=== PATIENT | female | born 1950 | race Caucasian/White ===

== ENCOUNTER → 2020-07-13 | Outpatient (CLI) | payer MEDICARE ==
[~2020-07-13] MED LIST: ASCO500T8 PO; ASPI81TA45 PO; ATOR10TA9 PO; CITA10TA4 PO; GLIM4TAB8 PO; IBUP-1902 PO; IRON PO; LISI1TAB23 PO; METF500T17 PO; OMEP20TA62 PO
[2020-07-13 15:13] LABS: BASOPHILS % (AUTO) 1 % (0-1); EOSINOPHILS % (AUTO) 0 % (1-7); LYMPHOCYTES % (AUTO) 22 % (22-44); MEAN CORPUSCULAR HEMOGLOBIN 27.4 pg (27.0-34.8); MEAN CORPUSCULAR HGB CONC 32.3 g/dL (32.4-35.8); MEAN PLATELET VOLUME 10.3 fL (7.4-10.4); MONOCYTES % (AUTO) 8 % (2-9); NEUTROPHILS % (AUTO) 70 % (42-75); PLATELET COUNT 187 x10^3/uL (130-400); RED BLOOD COUNT 4.68 x10^6/uL (3.82-5.3); RED CELL DISTRIBUTION WIDTH 15.1 % (9.6-15.2)
[2020-07-13 15:17] LABS: MD NO
[2020-07-13 15:25] LABS: ALANINE AMINOTRANSFERASE 50 U/L (12-78); ALBUMIN 3.9 g/dL (3.4-5.0); ANION GAP 7 mmol/L (5-15); CALCIUM 8.9 mg/dL (8.5-10.1); CHLORIDE 112 mmol/L (98-107); CREATININE 1.16 mg/dL (0.55-1.02)
[2020-07-13 15:27] LABS: ALKALINE PHOSPHATASE 191 U/L (45-117); BILIRUBIN,TOTAL 0.7 mg/dL (0.2-1.0); MICROSCOPIC NOT IND; TOTAL PROTEIN 8.9 g/dL (6.4-8.2)
== END | disposition home or self-care (01) ==
LOC: STAR 13:48
PROVIDERS: ATTEND Orthopaedic Surgery
DX: Z01.812 Encounter for preprocedural laboratory examination (principal); Z20.822 Contact with and (suspected) exposure to COVID-19; M17.12 Unilateral primary osteoarthritis, left knee
CPT/HCPCS: 80053; 81003; 85025; 87081; 87635; 87806; 93005; G0475

== ENCOUNTER 2020-07-19 08:08 | Observation (INO) | payer MEDICARE ==
[~2020-07-19] VITALS: Ht 154.9 cm; Wt 73.2 kg
[~2020-07-19 08:08] MED LIST changes: +BACITRACIN 50,000 UNIT ONE; +EPINEPHRINE 1 MG/ML, 1ML ONE; +ROPIvacaine/PF 0.2%, 20 ML ONE; +SODIUM CHLORIDE 0.9% 50 ML ONE; +TRANEXAMIC ACID 100 MG/ML, 10ML ONE; +morphine SULFATE/PF 1 MG/ML, 10ML ONE
[2020-07-19] MEDS ORDERED: VANCOMYCIN PMX 1GM/200ML 200 ML IV ONE (08:30)
[2020-07-19] MEDS ORDERED: CHLORHEXIDINE 15 ML UDC MM ONE (08:30)
[2020-07-19] MEDS ORDERED: LACTATED RINGERS 1,000 ML IV SCH (08:30)
[2020-07-19] MEDS ORDERED: CHLORHEXIDINE 15 ML UDC ONE (08:43)
[2020-07-19] MEDS ORDERED: FENTANYL PF 250 MCG/5ML ONE ×2 (08:51→10:48)
[2020-07-19] MEDS ORDERED: MIDAZOLAM 1 MG/ML, 2ML ONE (08:51)
[2020-07-19] MEDS ORDERED: PROMETHAZINE 25 MG/ML, 1ML IVPush PRN (09:30)
[2020-07-19] MEDS ORDERED: METHOCARBAMOL 1,000 MG in DEXTROSE 5% 100 ML IV PRN (09:30)
[2020-07-19] MEDS ORDERED: TRANEXAMIC ACID 1,000 MG in SODIUM CHLORIDE 0.9% 100 ML IV ONE ×2 (09:30→14:30)
[2020-07-19] MEDS ORDERED: OXYcodone 5 MG/5 ML ORAL.SOL UDC PO PRN (09:30)
[2020-07-19] MEDS ORDERED: ACETAMINOPHEN 325 MG TABLET PO PRN (09:30)
[2020-07-19] MEDS ORDERED: MEPERIDINE/PF 25MG/0.5ML IVPush PRN (09:30)
[2020-07-19] MEDS ORDERED: LORazepam 2 MG/ML, 1ML IVPush PRN ×2 (09:30)
[2020-07-19] MEDS ORDERED: EPHEDRINE 50 MG/ML, 1ML IVPush PRN (09:30)
[2020-07-19] MEDS ORDERED: HYDROmorphone 1 MG/ML, 1ML INJ IVPush PRN (09:30)
[2020-07-19] MEDS: D5%-0.45% NACL 1,000 ML IV SCH ×3 (09:30→19:30)
[2020-07-19] MEDS ORDERED: OXYcodone/APAP 7.5/325MG TABLET PO PRN (09:30)
[2020-07-19] MEDS ORDERED: ONDANSETRON 2MG/ML, 2ML IVPush PRN ×2 (09:30)
[2020-07-19] MEDS ORDERED: DIPHENHYDRAMINE 25 MG CAPSULE PO PRN (09:30)
[2020-07-19] MEDS ORDERED: HALOPERIDOL 5 MG/ML IV PRN (09:30)
[2020-07-19] MEDS ORDERED: morphine SULFATE 10 MG/ML, 1ML IVPush PRN (09:30)
[2020-07-19] MEDS ORDERED: hydrALAzine 20 MG/ML, 1ML IV PRN (09:30)
[2020-07-19] MEDS ORDERED: LABETALOL 5MG/ML, 20ML IV PRN (09:30)
[2020-07-19] MEDS ORDERED: ROCURONIUM 10 MG/ML,10ML ONE (09:43)
[2020-07-19] MEDS ORDERED: NEOSTIGMINE 1 MG/ML, 10ML ONE (09:43)
[2020-07-19] MEDS ORDERED: DEXAMETHASONE 4 MG/ML, 1ML ONE (09:43)
[2020-07-19] MEDS ORDERED: PROPOFOL 10 MG/ML, 20ML ONE (09:43)
[2020-07-19] MEDS ORDERED: ONDANSETRON 2MG/ML, 2ML ONE (09:43)
[2020-07-19] MEDS ORDERED: GLYCOPYRROLATE 0.2MG/1ML, 5ML ONE (09:43)
[2020-07-19] MEDS ORDERED: CEFAZOLIN 1,000 MG ONE (09:43)
[2020-07-19] MEDS ORDERED: SUCCINYLCHOLINE 20 MG/ML, 10ML ONE (09:43)
[2020-07-19] MEDS ORDERED: FENTANYL PF 100 MCG/2ML ONE (11:47)
[2020-07-19] MEDS ORDERED: OXYcodone 5 MG/5 ML ORAL.SOL UDC ONE (11:47)
[2020-07-19] MEDS: FENTANYL PF 100 MCG/2ML IV PRN ×2 (11:55→12:15)
[2020-07-19 13:50] VITALS: BP 127/62
[2020-07-19] MEDS: CEFAZOLIN PMX 1GM/50ML 50 ML IVPB SCH (18:11)
[2020-07-19 19:49] VITALS: BP 115/70
[2020-07-19] MEDS ORDERED: ATORVASTATIN 10 MG TABLET PO SCH (21:00)
[2020-07-19] MEDS ORDERED: ZOLPIDEM 5MG TABLET PO PRN (21:00)
[2020-07-19] MEDS: IBUPROFEN 200 MG TABLET PO PRN ×2 (21:40→21:41)
[2020-07-19 23:39] VITALS: BP 129/62
[2020-07-20] MEDS: D5%-0.45% NACL 1,000 ML IV SCH ×4 (00:30→15:30)
[2020-07-20] MEDS: CEFAZOLIN PMX 1GM/50ML 50 ML IVPB SCH ×2 (02:38→11:21)
[2020-07-20] MEDS: ACETAMINOPHEN 325 MG TABLET PO PRN ×2 (02:52→09:11)
[2020-07-20 03:52] VITALS: BP 138/80
[2020-07-20] MEDS ORDERED: ASPIRIN 81 MG TABLET EC PO SCH (06:00)
[2020-07-20] MEDS ORDERED: OMEPRAZOLE 20 MG CAPSULE.DR PO SCH (06:00)
[2020-07-20 06:31] VITALS: BP 162/65
[2020-07-20] MEDS ORDERED: ASPIRIN 325 MG TABLET EC PO SCH (08:00)
[2020-07-20] MEDS ORDERED: GLIMEPIRIDE 4 MG TABLET PO SCH (09:00)
[2020-07-20] MEDS ORDERED: metFORMIN 500 MG TABLET PO SCH (09:00)
[2020-07-20] MEDS ORDERED: ASCORBIC ACID 500 MG TABLET PO SCH (09:00)
[2020-07-20] MEDS ORDERED: LISINOPRIL 10 MG TABLET PO SCH (09:00)
[2020-07-20] MEDS ORDERED: CITALOPRAM 10 MG TABLET PO SCH (09:00)
[2020-07-20] MEDS ORDERED: HYDROCHLOROTHIAZIDE 12.5 MG CAPSULE PO SCH (09:00)
[2020-07-20] MEDS ORDERED: VANCOMYCIN PMX 1GM/200ML 200 ML IVPB ONE (09:30)
[2020-07-20 13:41] VITALS: BP 130/62
[2020-07-20] MEDS ORDERED: DOCUSATE 100 MG CAPSULE PO SCH (21:00)
== END 2020-07-20 15:55 | disposition home or self-care (01) ==
LOC: OUT 08:08 → 4NE 12:47 → OUT 13:54 → DCLOUNGE 07-20 15:42
PROVIDERS: ADMIT Orthopaedic Surgery; ATTEND Orthopaedic Surgery
DX: M17.12 Unilateral primary osteoarthritis, left knee (principal); E11.9 Type 2 diabetes mellitus without complications; I10 Essential (primary) hypertension; Z87.891 Personal history of nicotine dependence; Z79.899 Other long term (current) drug therapy
CPT/HCPCS: 27447; 36415; 73564; 82962; 85014; 85018; 96361; 96365; 96366; 96367; 96375; 97110; 97161; 97165; 97535; C1713; C1776; G0378; J0171; J0330; J0690; J1100; J2250; J2274; J2405; J2704; J2710; J2795; J3010; J3370; J7120